=== PATIENT | male | born 1995 | race American Indian/Alaskan Native ===

== ENCOUNTER 2022-11-16 18:35 | Emergency (ER) | payer BC | END 2022-11-16 21:08 | disposition home or self-care (01) | LOC: CSHERS 18:35 | DX: S00.03XA Contusion of scalp, initial encounter (principal); S16.1XXA Strain of muscle, fascia and tendon at neck level, initial encounter; W05.1XXA Fall from non-moving nonmotorized scooter, initial encounter; Z87.891 Personal history of nicotine dependence | CPT/HCPCS: 70450; 72125 ==

== ENCOUNTER 2022-12-25 10:54 | Emergency (ER) | payer BC ==
[2022-12-25] MEDS ORDERED: Ondansetron PF 4 MG/2 ML Vial ONE (11:27)
[2022-12-25 11:58] LABS: #Eosinphils 0.2 10x3/uL (0.0-0.5); #Monocytes 0.6 10x3/uL (0.0-1.1); #Neutrophils 6.9 10x3/uL (1.5-8.4); %Basophils 0.2 % (0.0-2.0); %Eosinophils 1.6 % (0.0-6.0); %Lymphocytes 24.2 % (18.0-47.0); %Monocytes 5.4 % (0.0-10.0); %Neutrophils 68.4 % (40.0-75.0); Hemoglobin 17.7 g/dL (13.5-17.5); Mean Corpuscular HGB CONC 32.9 g/dL (32.0-36.0); Mean Corpuscular Hemoglobin 27.4 pg (27.0-33.0); Mean Corpuscular Volume 83.2 fl (81.2-95.1); Mean Platelet Volume 9.4 fl (7.4-10.4); Platelet Count 379 10x3/uL (150-450); RBC Distribution Width 13.2 % (11.5-14.5); Red Blood Cell (RBC) Count 6.47 10x6/uL (4.32-5.72); White Blood Cell (WBC) Count 10.1 10x3/uL (3.5-10.5)
[2022-12-25 12:16] LABS: ALT (SGPT) 72 U/L (8-55); AST (SGOT) 30 U/L (5-34); Albumin 4.8 g/dL (3.5-5.0); Alkaline Phosphatase 123 U/L (40-110); Anion Gap 16 mmol/L (10-20); BUN (Urea Nitrogen) 10 mg/dL (8.9-20.6); Bilirubin, Total 0.8 mg/dL (0.2-1.2); Calc. Creatinine Clearance 0 mL/min (70-130); Calcium 9.8 mg/dL (7.8-10.44); Carbon Dioxide 24 mmol/L (22-29); Chloride 102 mmol/L (98-107); Estimated GFR 115; Globulin 2.9 g/dL (2.4-3.5); Glucose 107 mg/dL (70-105); Lipase 20 U/L (8-78); Potassium 4.4 mmol/L (3.5-5.1); Protein, Total 7.7 g/dL (6.0-8.3); Sodium 138 mmol/L (136-145)
== END 2022-12-25 14:29 | disposition home or self-care (01) ==
LOC: CSHERS 10:54
DX: R11.2 Nausea with vomiting, unspecified (principal); R19.7 Diarrhea, unspecified; E11.9 Type 2 diabetes mellitus without complications; E03.9 Hypothyroidism, unspecified; Z87.891 Personal history of nicotine dependence
CPT/HCPCS: 36415; 80053; 83605; 83690; 83735; 85025; 96361; 96374; J2405